=== PATIENT | female | born 1985 | race Caucasian/White ===

== ENCOUNTER 2017-08-02 13:05 | Outpatient (CLI) | payer MEDICAID, SELFPAY ==
[2017-08-02 13:10] VITALS: BMI 33.2
[2017-08-02 13:48] LABS: Hematocrit 37.4 % (37-47); Mean Corp Hgb Conc 34.8 g/gl (32-36); Mean Corpuscular Hgb 33.8 pg (27.0-32.0); Mean Corpuscular Volume 97.1 fL (81-99); Mean Platelet Vol. 9.9 fl (6.2-12.0); Platelet Count 165 K/mm3 (150-450); RBC Distribution Width CV 14.4 % (11.6-14.6); RBC Distribution Width SD 49.3 fl (35.1-43.9); Red Blood Count 3.85 M/mm3 (4.2-5.4); White Blood Count 12.5 K/mm3 (4.4-11.0)
[2017-08-02 13:50] LABS: Scan Indicated on CBC? Y/N NO
[2017-08-02 13:55] LABS: International Normalized Ratio 0.9; Prothrombin Time (Protime)PT. 12.6 SECONDS (11.7-14.9)
[2017-08-02 13:56] LABS: AST(SGOT) 16 U/L (15-37); Alanine Aminotransfer ALT/SGPT 18 U/L (13-56); Creatinine, Serum 0.42 mg/dL (0.55-1.02); EST Glomerular Filtration Rate 189 mL/min (>60); Est Glom Filt Rate - Afr Amer 228 mL/min (>60); Partial Thromboplast Time 25.2 Seconds (24.1-36.2)
[2017-08-02 14:44] LABS: Creatinine, Urine (random) < 13.00 mg/dL (NO RANGE EST.); Protein, Urine (Random) < 6.0 mg/dL (<11.9)
[2017-08-03 14:31] LABS: 24 Hour Urine Protein 202.1 mg/24HR (<150 MG/24HR); 24HR. UA Prot. Total Volume 1925 mL; Urine Protein (24 Hour) 10.5 mg/dL (<11.9)
--- NOTE | 2017-08-25 11:46 | OB.TRI.NOTE ---
History of Present Illness Date of Service: 08/02/17 Was patient seen by the physician?: No Reason For Visit: R/O PRE E Date of Service: 08/02/17 History of Present Illness: Sent to L&D for evaluation of BP. Elevated in office. Home Medications Medication Instructions Recorded Vit No.130/Iron/FA 1 each PO DAILY 08/02/17 [ Tablet] Allergies No Known Allergies Allergy (Verified 08/02/17 14:00) NST - FHR Rate Baby A Baseline: 130 Variability:: Moderate Accelerations:: 15 x 15 Decelerations:: None NST Reactive:: Yes FHR Category:: Category I Uterine Activity:: Irregular uterine contractions Impression/Plan A: Elevated BP P: 1) BP stable and normal range on L&D unit. Labs normal 2) D/C home
== END 2017-08-02 15:45 | disposition home or self-care (01) ==
LOC: WPOUT 13:08 → WP 13:08
PROVIDERS: Visit Provider Advanced Practice Midwife
DX: O26.893 Other specified pregnancy related conditions, third trimester (principal); R03.0 Elevated blood-pressure reading, without diagnosis of hypertension; Z3A.00 Weeks of gestation of pregnancy not specified
CPT/HCPCS: 36415; 59025; 59050; 82565; 82570; 84156; 84450; 84460; 84550; 85027; 85610; 85730; 99218; G0378

== ENCOUNTER 2017-08-11 19:42 | Inpatient (IN) | payer MEDICAID, SELFPAY ==
[2017-08-11 19:23] VITALS: BMI 33.1
[2017-08-11] MEDS: Lactated Ringers 1,000 ML 50 ML IV (19:50)
[2017-08-11 20:40] LABS: Hematocrit 40.3 % (37-47); Mean Corp Hgb Conc 34.7 g/gl (32-36); Mean Corpuscular Hgb 33.3 pg (27.0-32.0); Mean Corpuscular Volume 95.7 fL (81-99); Mean Platelet Vol. 10.3 fl (6.2-12.0); Platelet Count 159 K/mm3 (150-450); RBC Distribution Width CV 14.4 % (11.6-14.6); RBC Distribution Width SD 50.4 fl (35.1-43.9); Red Blood Count 4.21 M/mm3 (4.2-5.4); White Blood Count 21.2 K/mm3 (4.4-11.0)
[2017-08-11 20:42] LABS: Scan Indicated on CBC? Y/N NO
[2017-08-11] MEDS: Oxytocin 30 units/NS 500 ml 30 UNITS/500 ML IV.SOLN 334 UNITS IV (21:05)
--- NOTE | 2017-08-11 21:20 | PCM.OB.VAG ---
- Problem List (1) History of depression Status: Acute Vaginal Delivery Maternal Presentation: Active Labor Amniotic Membrane Rupture Type: Artificial Amniotic Fluid Description: Clear Final BILLIE: 08/08/17 Final BILLIE Source: LMP Gestational age: 40 Weeks and 3 Days Date of Procedure: 08/11/17 Pre-Operative Diagnosis: Labor Post-Operative Diagnosis: of viable male Surgery/ Procedure Performed: Spontaneous Vaginal Delivery Type of Anesthesia: None Description of Procedure: Patient admitted at 7cm, quickly progressed while in shower. Patient then found to be 9cm, requested AROM at that time. AROM for clear fluid. Soon after patient started feeling urge to bear down and push, patient found to be C/C/0. Patient pushed well with urge and delivered a viable male over 1st degree lacerated perineum at 2057. In head delivered OA, restituted to JOZEF then ROT. Anterior shoulder delivered without difficulty followed by posterior shoulder and body. immediately had a spontaneous cry and respirations and was placed on maternal chest for drying and stimulating. Mouth and nose bulb suctioned . Apgars 9 and 9. [place] weight pending. Umbilical cord clamped and cut by FOB once it stopped pulsing. Sample collected for cord blood collection due to maternal O+ blood type. Placenta delivered spontaneously via Rojas mechanism intact with 3VC. Placental triage WNL. FF to massage midline and 2FB below umbilicus, IV pitocin administered per protocol for active management of the 3rd stage. EBL = 250cc. Upon inspection of vaginal vault, small 1st degree perineal laceration noted. Repaired under 1% Lidocaine local analgesia using 3-0 rapide on SH suture in the usual fashion. Sponge and needle count correct. Vaginal sweep negative. Skin-to skin initiated, bonding and initiated. Maile Amos CNM Presentation: Vertex, JOZEF Placental Delivery Description: Spontaneous Cord Vessel Description: 3 Vessels Cord Entanglement: None Estimated Blood Loss: 250 Infant A gender: Male (1 minute): 9 (5 minute): 9 Episiotomy Description: None Laceration: Midline, Perineal Extension/lac, 1st degree - 1 stitch to repair Medications given after delivery: IV Pitocin Complications: None
[2017-08-11] MEDS: Oxytocin 30 units/NS 500 ml 30 UNITS/500 ML IV.SOLN 167 UNITS IV (21:35)
--- NOTE | 2017-08-11 21:35 | PCM.HP.OB ---
- Problem List (1) History of depression Status: Acute History Date of Admission: 08/11/17 Final BILLIE: 08/08/17 Final BILLIE Source: LMP Gestational age: 40 Weeks and 3 Days History of this : Patient presented for antepartum care at 8 weeks x 15 visits. care uneventful and without any complications Pertinent Past Medical History: Hx of PP Depression in a previous (after her 2nd delivery) - patient only took medication for 2 days. Reports depression was mostly situational. No current exacerbations of depression noted. Allergies No Known Allergies Allergy (Verified 08/02/17 14:00) Current Medications Acetaminophen (Tylenol) 325 - 650 mg PO Q4H PRN PRN PRN Reason: PAIN OR FEVER >100.4F Al Hydroxide/Mg Hydroxide (Mylanta Ii) 15 - 30 ml PO Q4H PRN PRN PRN Reason: INDIGESTION Citric Acid/Sodium Citrate (Bicitra) 30 ml PO UD PRN Lactated Ringer's () 1,000 mls @ 50 mls/hr IV .Q20H AYLIN Nalbuphine HCl (Nubain) 5 - 10 mg IV Q3H PRN PRN PRN Reason: PAIN (4-10/10) Ondansetron HCl (Zofran) 4 mg IV Q8H PRN PRN PRN Reason: NAUSEA Promethazine HCl (Phenergan) 6.25 - 12.5 mg IV Q4H PRN PRN; Protocol PRN Reason: IF NAUSEA PERSISTS Sodium Chloride () 5 - 15 ml IV UD AYLIN Smoking Status: Former smoker - Stopped smoking 04/19/17 Alcohol: None Drug Use: none Number of Fetus(es): 1 Review of Systems Constitutional: Denies: Chills, Fever, Weight Change HEENT: Denies: Head Aches, Sinus Congestion, Sinus Drainage Cardiovascular: Denies: Chest Pain, Palpitations Respiratory: Denies: Cough, Shortness of breath at rest, Sputum production Gastrointestinal: Reports: Abdominal Pain - consistent with ctx pain. Denies: Nausea, Vomiting Genitourinary: Denies: Dysuria Musculoskeletal: Denies: Joint Pain, Joint Tenderness Skin: Denies: Rash, Wounds Neurological: Denies: Numbness, Tingling, Focal weakness Psychiatric: Denies: Anxiety, Depression, Homicidal Ideations, Suicidal Ideations Hematologic/ Lymphatic: Denies: Easy Bruising, Easy Bleeding Physical Exam Vitals: See nursing noted for vital signs, VSS and patient afebrile FHT by intermittent auscultation - 140, no decels noted during or after ctx Ctx q 2-3 minutes apart, strong to palpation General: Alert, Oriented x3, No apparent distress Cardiovascular: Regular rate, Regular Rhythm Lungs: Clear to auscultation Abdomen: Non Tender, Non-Distended, Gravid, Appropriate for Gestational Age Extremities:: No edema Estimated gestational size: Appropriate for gestational size Presentation: Cephalic Cervix Dilation (cm): 7 Station: 0 Effacement (%): 90 Assessment/Plan Active and Suspected Problems History of depression (Acute) 31 y/o @ 40.3 weeks, Transition Stage of Labor P: 1) Continue expectant management 2) Anticipate 3) Dr. Romero notified of admission Maile KIRK
--- NOTE | 2017-08-11 21:57 | DCINST_ITS ---
Discharge Diet: No Restrictions Discharge Activity: Return to Normal Activity, May not drive while taking narcotic pain medications., May Shower May resume sexual activity in: 4-6 weeks Additional Activity Instructions:: Nothing in the vagina for 4-6 weeks. You may return to work/school in 6 weeks. Call your doctor if your incision/area has: Continuous Slow Oozing, Sudden Increased Bleeding, Increased Pain/ Swelling, Increased Redness, Foul Smelling Discharge Call your doctor if you observe: Fever of 101 or Higher, Inability to urinate, Inability to have a bowel movement, Using more than one pad per hour Additional Instructions: If you experience any of the following, contact your healthcare provider. * Bleeding that soaks a pad every hour for 2 hours * Fever 100.4 or higher * Unrelieved incision or abdominal pain * Swelling, redness, discharge or bleeding from your incision or episiotomy site * Your incision begins to separate * Problems urinating (including inability to urinate or burning while urinating) . * Visual changes * Severe headache * Flu-like symptoms * Pain or redness in one of both of your breasts * Pain, warmth, tenderness or swelling in your legs, especially the calf area * Frequent nausea and vomiting * Symptoms of depression or anxiety If you experience any of the following, call 911 or go to the nearest Emergency Room. * Chest pain * Problems breathing * Seizure activity * Partial or complete paralysis of a body part, slurred speech, weakness or drooping of the face, or a sudden inability to walk or hold your balance Allergies/Adverse Reactions: Allergies No Known Allergies Allergy (Verified 08/02/17 14:00) Medications to take at Discharge Vit No.130/Iron/FA [ Vitamins] 1 each PO DAILY 08/02/17 Please Follow Up With: Maile Amos CNM When: Call to make an appointment with your doctor in 6 weeks. If you had elevated Blood Pressure or 4th degree laceration you will need to be seen in 2 weeks. Primary Care Physician: Care Physician,No Primary [Primary Care Provider] -
[2017-08-11] MEDS: 0.9% Saline Lock 10 ML Syringe IV (22:46)
[2017-08-11 23:18] VITALS: BP 119/63; PULSE 97; RESP 18; TEMP 37.1
[2017-08-12 06:00] VITALS: BP 109/66; PULSE 76; RESP 18
[2017-08-12] MEDS: Naproxen 250 MG Tablet PO (06:01)
[2017-08-12 08:00] VITALS: BP 113/59; PULSE 79; RESP 18; TEMP 36.9
[2017-08-12 11:29] VITALS: BP 99/67; PULSE 76; RESP 18; TEMP 36.6
--- NOTE | 2017-08-12 12:39 | PCM.PN.OB ---
Patient Problems: Active and Suspected Problems History of depression (Acute) Subjective: Patient reports no issues at this time. baby without difficulty. Patient reports no issues with urination or ambulation. Patient desires discharge to home if possible this evening. Objective: Scant rubra lochia Perineum well-approximated - Physical Exam General: Alert, Oriented x3, Cooperative HEENT: Normocephalic Lungs: Normal air movement Cardiovascular: Regular rate, No murmurs Abdomen: Soft, Non Tender, Passing Flatus, - - FF midline 2FB below umbilicus Extremities: No edema, Capillary Refill Less than 3 Seconds, No Calf Tenderness Skin: No rashes, No breakdown Musculoskeletal: No Tenderness to Palpation of Joints or Extremities Lymphatic: No Cervical, Supraclavicular, or Inguinal Adenopathy Neurological: Cranial nerves II-XII grossly intact, Muscle tone normal Psych/Mental Status: Normal Affect, Appropriate, Alert and oriented to time, place, person, mood and affect Vital Signs Temp Pulse Resp BP 97.8 F 76 18 99/67 08/12/17 11:29 08/12/17 11:29 08/12/17 11:29 08/12/17 11:29 Oxygen Delivery Method Room Air Weight: 186 lb 15.232 oz Body Mass Index (BMI) 33.1 Intake and Output for Last 24 Hours 08/10/17 08/11/17 08/12/17 23:59 23:59 23:59 Intake Total 337 / 337 Output Total 800 / 800 Balance -463 / -463 Laboratory Tests Past 24 Hrs 08/11/17 08/11/17 20:00 20:00 WBC 21.2 H RBC 4.21 Hgb 14.0 Hct 40.3 MCV 95.7 MCH 33.3 H MCHC 34.7 RDW 14.4 RDW Differential 50.4 H Plt Count 159 MPV 10.3 Blood Type O POSITIVE Antibody Screen NEGATIVE Medical Necessity - Tobacco Use Smoking Status: Former smoker - Stopped smoking 04/19/17 Assessment/Plan Active and Suspected Problems History of depression (Acute) 31 y/o G3 now P3, PPD #1, Normal Course P: 1) Discharge to home pending discharge 2) Anticipatory health teaching done 3) RTC at 6 wks PP to [facility] Maile Amos CNM
[2017-08-12 16:00] VITALS: BP 117/67; PULSE 89; RESP 18; TEMP 36.8
[2017-08-12 19:48] VITALS: BP 119/63; PULSE 91; RESP 18; TEMP 36.4; O2SAT 97
[2017-08-13 01:35] VITALS: BP 131/56; PULSE 87; RESP 16; TEMP 36.3
[2017-08-13 07:35] VITALS: BP 105/68; PULSE 93; RESP 18; TEMP 36.8; O2SAT 99
--- NOTE | 2017-08-13 08:19 | PCM.PN.OB ---
Patient Problems: Active and Suspected Problems History of depression (Acute) Subjective: pt seen at bedside doing well. pt reports good pain control. lochia mild. breast feeding well. - Physical Exam General: Alert, Oriented x3 Abdomen: Soft, Non Tender, Non-Distended, - - fundus firm Vital Signs Temp Pulse Resp BP Pulse Ox 97.4 F L 87 16 131/56 H 97 08/13/17 01:35 08/13/17 01:35 08/13/17 01:35 08/13/17 01:35 08/12/17 19:48 Oxygen Delivery Method Room Air Weight: 84.8 kg Body Mass Index (BMI) 33.1 Intake and Output for Last 24 Hours 08/11/17 08/12/17 08/13/17 23:59 23:59 23:59 Intake Total 337 / 337 Output Total 800 / 800 Balance -463 / -463 Medical Necessity - Tobacco Use Smoking Status: Former smoker - Stopped smoking 04/19/17 Assessment/Plan Active and Suspected Problems History of depression (Acute) PPD#2, doing well routine care co home
--- NOTE | 2017-08-13 09:22 | NURSING ---
pt discharged to home. mom taken out in wheelchair with baby in car seat on her lap. Pt given verbal and written instructions and denies questions at this time.
== END 2017-08-13 08:50 | disposition home or self-care (01) | DRG 373 ==
LOC: WP 21:09 → WPOUT 08-12 07:51
PROVIDERS: Admitting Provider Obstetrics & Gynecology; Visit Provider Obstetrics & Gynecology
DX: O70.0 First degree perineal laceration during delivery (principal); Z87.891 Personal history of nicotine dependence; Z3A.40 40 weeks gestation of pregnancy; Z37.0 Single live birth
CPT/HCPCS: 59050; 85027; 86850; 86900; 99218; J7120; A4216; G0378